=== PATIENT | female | born 1980 | race Caucasian/White ===

== ENCOUNTER 2017-01-28 08:19 | Emergency (ER) | payer BC, OTHER ==
[~2017-01-28] VITALS: Ht 157.5 cm; Wt 63.2 kg
[~2017-01-28 08:19] MED LIST: AMOX500C PO
[2017-01-28 08:24] VITALS: BP 162/96
--- NOTE | 2017-01-28 08:38 | PHYS DOC ---
General Chief Complaint: FLANK PAIN Stated Complaint: BACK PAIN,NAUSEA Time Seen by MD: 08:20 Source: patient Exam Limitations: no limitations Problems: History of Present Illness Initial Comments Patient is a 36-year-old female who comes to the ED complaining of left flank pain and nausea. Patient was seen January 19 at [facility] for similar symptoms, on that day she had a 3 mm nonobstructing left ureterolithiasis and UTIs she was discharged home with Cipro and Cleveland 5 mg. She says she was doing well until 2 days ago she developed what she calls bladder spasms and she began taking over- the-counter Azo yesterday which resolved those symptoms. This morning she says she was awakened approximately 5 AM with severe left costovertebral angle pain and nausea. She's had no vomiting she took three 5mg Cleveland and 50 mg of Phenergan at home without any relief. She ultimately had to come into the emergency department with the severity of her symptoms. On ED arrival patient vital signs are stable: 97.7, 53, 16, 162/96, 100% RA. She is in severe distress with pain and nausea she denies any fever chills sweats or myalgias prior to coming in. She has history of kidney stones and lithotripsy in the past. Timing/Duration: other Severity: severe Modifying Factors: improves with other Associated Symptoms: nausea/vomiting (well), other Allergies: Coded Allergies: No Known Drug Allergies (Unverified , 09/06/15) Past Medical History Medical History: other (hypothyroid, kidney stones, migraine, ADD, insomnia) Surgical History: other (appendectomy, hysterectomy, lithotripsy, breast augmentation) Social History Alcohol: occasionally Drugs: none Review of Systems Constitutional: denies chills, denies diaphoresis, denies fever Respiratory: denies cough, denies shortness of breath Cardiovascular: denies chest pain, denies palpitations Gastrointestinal: see HPI Genitourinary: see HPI Musculoskeletal: see HPI, denies joint swelling, denies neck pain Psychiatric/Neurological: denies headache, denies numbness, denies paresthesia Hematologic/Lymphatic: denies blood clots, denies easy bleeding, denies easy bruising Physical Exam General Appearance: WD/WN, moderate distress Eyes: bilateral eye normal inspection, bilateral eye PERRL, bilateral eye EOMI Ear, Nose, Throat: hearing grossly normal, normal ENT inspection, normal pharynx Neck: non-tender, supple Respiratory: normal breath sounds, no respiratory distress Cardiovascular: normal peripheral pulses, bradycardia Gastrointestinal: non tender, soft (bowel sounds diminished), no organomegaly Back: no vertebral tenderness, CVA tenderness (L) Extremities: normal range of motion, normal inspection 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 PHYSICIAN: KEY GREGORY DO REASON: L flank pain h/o stone PROCEDURE: CT ABDOMEN PELVIS WO CONTRAST Indication: Left flank pain. The patient does have a history of kidney stones. Axial imaging through the abdomen and pelvis was performed without contrast. Comparison is made with prior CT from 05/02/2015. The liver and gallbladder are unremarkable. The pancreas and spleen are unremarkable. No adrenal mass is detected. The right kidney is unremarkable. No renal calculi are detected. There is mild left hydroureteronephrosis. The dilated left ureter is traced into the pelvis where there is a 2 to 3 mm calculus just above the UVJ. Bladder is unremarkable. There is mild sigmoid diverticulosis but no evidence of acute diverticulitis. Small and large bowel loops are normal caliber. There is no ascites. Impression: 2 to 3 mm calculus distal left ureter producing mild hydroureteronephrosis. PQRS Compliance Statement: One or more of the following individualized dose reduction techniques were utilized for this examination: 1. Automated exposure control 2. Adjustment of the mA and/or kV according to patient size 3. Use of iterative reconstruction technique DICTATED AND SIGNED BY: KATIUSKA COFFEY MD DATE: 01/28/17917 CC: RADHA MAE MD; KEY GREGORY DO ~ Pertinent labs: White blood cells 11.4, BUN 24, creatinine 1.4 Urinalysis: SE mod, WBC 1-4, RBC >40, +Nitrites, 100 glu At this time patient's symptoms are controlled with fentanyl, Toradol, Zofran, and Reglan. She is agreeable to transfer she has also received Rocephin 1 g IV. 0955: A call was placed to Dr. Tanner urologist, I did not actually speak with him. His office staff advised emergency department staff his request transfer the patient to [facility] for further evaluation and treatment. 1001: Pt discussed with business operations manager hospitalist at [facility] Dr Jose who accepts med/surg admission/transfer. Urine culture result obtained from a January 19 [facility] ED visit , mixed urogenital rajan. IMPRESSIONS: Left sided 3mm distal ureterolithiasis with hydroureteronephrosis UTI Renal Insufficiency Departure Time of Disposition: 10:12 Disposition: 05 XFER OTHER Diagnosis: left ureterolithiasis with obstruction, UTI, renal Condition: STABLE Additional Instructions: EMS transfer to [facility] Dr Jose is accepting Dr Tanner to be consulted. KEY GREGORY DO Jan 28, 2017 08:38
[2017-01-28] MEDS ORDERED: IV NORMAL SALINE 1,000ML 1,000 ML ONE (08:43)
[2017-01-28 08:44] LABS: BASO # 0.1 x10^3/uL (0.0-0.2); BASO % 1 % (0-3); EOS # 0.1 x10^3/uL (0.0-0.7); EOS % 1 % (0-3); HEMATOCRIT 43.8 % (36.0-47.0); HEMOGLOBIN 14.7 g/dL (12.0-15.5); LYMPH # 2.5 x10^3/uL (1.0-4.8); LYMPH % 22 % (24-48); MEAN CORPUSCULAR HEMOGLOBIN 31 pg (25-35); MEAN CORPUSCULAR HGB CONC 34 g/dL (31-37); MEAN CORPUSCULAR VOLUME 93 fL (79-100); MONO # 0.6 x10^3/uL (0.0-1.1); MONO % 5 % (0-9); NEUT # 8.2 x10^3uL (1.8-7.7); NEUT % 72 % (31-73); PLATELET COUNT 322 x10^3/uL (140-400); RED BLOOD COUNT 4.74 x10^6/uL (3.50-5.40); RED CELL DISTRIBUTION WIDTH 13.8 % (11.5-14.5); WHITE BLOOD COUNT 11.4 x10^3/uL (4.0-11.0)
[2017-01-28] MEDS ORDERED: fentaNYL PF 100 MCG/2 ML VIAL IV PRN ×2 (08:45→10:30)
[2017-01-28 08:50] LABS: CALCIUM 8.3 mg/dL (8.5-10.1); CREATININE 1.4 mg/dL (0.6-1.0); GFR 42.1; POTASSIUM 3.9 mmol/L (3.5-5.1)
[2017-01-28 08:57] LABS: CLARITY,URINE HAZY; COLOR,URINE AMBER; GLUCOSE,URINE 100 mg/dL (NEG)
[2017-01-28 08:58] LABS: BILIRUBIN,URINE SMALL (NEG); NITRITE,URINE POS (NEG); UROBILINOGEN,URINE 1 mg/dL (0.2 mg/dL)
[2017-01-28 08:59] LABS: BACTERIA,URINE FEW /HPF (0-FEW); RBC,URINE >40 /HPF (0-2); SQUAMOUS EPITHELIAL CELL,UR MOD /LPF
[2017-01-28] MEDS ORDERED: KETOROLAC 30 MG/ML VIAL. IV ONE (09:10)
[2017-01-28] MEDS ORDERED: ONDANSETRON PF 4 MG/2 ML VIAL. IV ONE (09:10)
--- NOTE | 2017-01-28 09:23 | RAD ---
Indication: Left flank pain. The patient does have a history of kidney stones. Axial imaging through the abdomen and pelvis was performed without contrast. Comparison is made with prior CT from 05/02/2015. The liver and gallbladder are unremarkable. The pancreas and spleen are unremarkable. No adrenal mass is detected. The right kidney is unremarkable. No renal calculi are detected. There is mild left hydroureteronephrosis. The dilated left ureter is traced into the pelvis where there is a 2 to 3 mm calculus just above the UVJ. Bladder is unremarkable. There is mild sigmoid diverticulosis but no evidence of acute diverticulitis. Small and large bowel loops are normal caliber. There is no ascites. Impression: 2 to 3 mm calculus distal left ureter producing mild hydroureteronephrosis. PQRS Compliance Statement: One or more of the following individualized dose reduction techniques were utilized for this examination: 1. Automated exposure control 2. Adjustment of the mA and/or kV according to patient size 3. Use of iterative reconstruction technique
[2017-01-28] MEDS ORDERED: METOCLOPRAMIDE HCL 10 MG/2 ML VIAL. IV ONE (09:40)
[2017-01-28] MEDS ORDERED: IV NORMAL SALINE 50ML 50 ML ONE (11:00)
[2017-01-28] MEDS ORDERED: cefTRIAXone SODIUM 1 GM VIAL IV ONE (11:00)
== END 2017-01-28 11:10 | disposition short-term general hospital (02) ==
LOC: ER 08:19
DX: N13.2 Hydronephrosis with renal and ureteral calculous obstruction (principal); N39.0 Urinary tract infection, site not specified; Z87.442 Personal history of urinary calculi; E03.9 Hypothyroidism, unspecified; F98.8 Other specified behavioral and emotional disorders with onset usually occurring in childhood and adolescence; G47.00 Insomnia, unspecified; G43.909 Migraine, unspecified, not intractable, without status migrainosus; N28.9 Disorder of kidney and ureter, unspecified
CPT/HCPCS: 36415; 74176; 80048; 81001; 85027; 87086; 96365; 96375; 96376; 99285; J0696; J1885; J2405; J2765; J3010; 80305; 80320; G0481

== ENCOUNTER 2017-07-30 18:40 | Emergency (ER) | payer BC ==
[~2017-07-30] VITALS: Ht 157.5 cm; Wt 63.2 kg
--- NOTE | 2017-07-30 19:08 | PHYS DOC ---
Past History Past Medical History: Hypothyroid, Migraines, Other Past Surgical History: Appendectomy, Hysterectomy, Other Alcohol Use: Occasionally Drug Use: None Adult General Chief Complaint Chief Complaint: Neck Pain HPI HPI Patient is a 37 year old F who presents with neck pain and difficult swallowing. Patient states that yesterday symptoms started which started in the middle of her chest and went up to her neck with associated difficult to swallowing. Patient states her gave her a neck massage and which symptoms got better and she is able to sleep with no occasions. Patient woke up this morning without any symptoms as day progressed started having more difficulty swallowing and fill it as a lump the back of her throat. Patient has no sniff get cardiac history other than remote history of bigeminy and trigeminy in which he takes no medication for period. Patient states she has not had any palpitations quite some time. Patient denies any fevers. Patient denies any shortness of breath. Patient has no other complaints. Review of Systems Review of Systems GEN: Denies fevers, chills, sweats HEENT: Difficult swallowing CV: chest pain RESP: Denies shortness of air, cough GI: Denies n/v/d NEURO: Denies confusion, dizziness MSK: Denies weakness, joint pain/swelling All other systems were reviewed and found to be within normal limits, except as documented in this note. Allergies Allergies Allergies Coded Allergies Type Severity Reaction Last Updated Verified No Known Drug Allergies 09/06/15 No Physical Exam Physical Exam GEN.: No apparent distress. Alert and oriented. HEENT: Head is normocephalic, atraumatic NECK: Supple. LUNGS: CTAB. HEART: RRR, S1, S2 present. Peripheral pulses intact ABDOMEN: Soft, nontender. Positive bowel sounds. EXTREMITIES: Without any cyanosis. NEUROLOGIC: Normal speech, normal tone PSYCHIATRIC: Normal affect, normal mood. SKIN: No ulcerations Current Patient Data Vital Signs Vital Signs Date Time Temp Pulse Resp B/P (MAP) Pulse Ox O2 Delivery O2 Flow Rate FiO2 07/30/17 18:59 98.0 92 18 99 Room Air EKG EKG 1911: EKG shows normal sinus rhythm rate of 74 no STEMI[] Radiology/Procedures Radiology/Procedures Chest x-ray NAD CT scan soft tissue neck with contrast: IMPRESSION: No inflammation, mass or adenopathy evident. The thyroid gland is subjectively atrophic and demonstrates diminished density/contrast enhancement, this is of uncertain significance, consider correlation with thyroid function studies to exclude the possibility of thyroiditis or hypothyroidism.[] Course & Med Decision Making Course & Med Decision Making Pertinent Labs and Imaging studies reviewed. (See chart for details) ED course: Patient was seen and examined emergency room a cardiac workup was ordered along with a CT scan of the soft tissue neck with contrast Updated patient on lab results and CT findings, specifically the dense spots in the thyroid and recommended short-term follow-up with her PCP for further thyroid studies along with ultrasound the thyroid. On reexamination patient felt that her neck was still tight and did not want to come the hospital for cardiac workup and did not think this was cardiac related. Patient requested a muscle relaxer for the neck since her massaging her neck help with symptoms. MDM: After reviewing the chart, CC/HPI/PMH, physical exam, [lab results], [ radiological results], I do not believe the patient has emergent medical condition warranting further workup and/or admission at this time. I do not believe the patient having acute NV (HEART score =1), PE (Perc neg), and low suspicion for acute thoracic aortic dissection. Patient did not feel this is cardiac in nature and felt is more muscle related and would like a muscle relaxer to go home with. Patient was comfortable being discharged home. I believe patient stable for discharge. Additional verbal discharge instructions were provided to the patient and that if symptoms get worse or any new symptoms arise that are worrisome to the patient she is to return to the emergency room immediately Dragon Disclaimer Dragon Disclaimer This electronic medical record was generated, in whole or in part, using a voice recognition dictation system. Departure Departure: Impression: Primary Impression: Neck pain Additional Impression: Chest pain Disposition: 01 HOME, SELF-CARE Condition: IMPROVED Referrals: RED RODRÍGUEZ MD (PCP) Patient Instructions: Chest Pain (Nonspecific), Soft Tissue Injury of the Neck , [id number] Additional Instructions: Please follow-up with your family physician next one to 2 days for further evaluation and management of your symptoms and for further workup of your thyroid Scripts Diazepam (VALIUM) 5 Mg Tablet 5 MG PO TID for 5 Days, #15 TAB Prov: ANTWAN MELLO DO 07/30/17 Problem Qualifiers ANTWAN MELLO DO Jul 30, 2017 19:08
[2017-07-30] MEDS ORDERED: LIDO:MAALOX 1:1 20 ML SINGLE DOSE PO ONE (19:15)
[2017-07-30 19:20] LABS: BASO # 0.1 x10^3/uL (0.0-0.2); BASO % 1 % (0-3); EOS # 0.1 x10^3/uL (0.0-0.7); EOS % 2 % (0-3); LYMPH % 38 % (24-48); MEAN CORPUSCULAR HEMOGLOBIN 32 pg (25-35); MEAN CORPUSCULAR HGB CONC 35 g/dL (31-37); MEAN CORPUSCULAR VOLUME 90 fL (79-100); MONO # 0.5 x10^3/uL (0.0-1.1); MONO % 6 % (0-9); NEUT # 4.2 x10^3uL (1.8-7.7); NEUT % 54 % (31-73); PLATELET COUNT 233 x10^3/uL (140-400); RED BLOOD COUNT 4.76 x10^6/uL (3.50-5.40); RED CELL DISTRIBUTION WIDTH 13.2 % (11.5-14.5); WHITE BLOOD COUNT 7.9 x10^3/uL (4.0-11.0)
--- NOTE | 2017-07-30 19:23 | EKG ---
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
[2017-07-30 19:42] LABS: ALBUMIN 3.8 g/dL (3.4-5.0); ALBUMIN/GLOBULIN RATIO 1.2 (1.0-1.7); CALCIUM 9.2 mg/dL (8.5-10.1); CREATININE 0.9 mg/dL (0.6-1.0); GFR 69.7; POTASSIUM 3.7 mmol/L (3.5-5.1); TOTAL BILIRUBIN 0.2 mg/dL (0.2-1.0); TOTAL PROTEIN 7.1 g/dL (6.4-8.2)
[2017-07-30] MEDS ORDERED: IOHEXOL 300 MG/ML 75 ML VIAL. IV ONE ×2 (19:45)
[2017-07-30 20:47] VITALS: BP 150/90
--- NOTE | 2017-07-30 20:55 | RAD ---
CT soft tissue neck with contrast HISTORY: Neck pain and upper chest pain. Dysphagia. TECHNIQUE: Helical CT imaging of the neck acquired with 75 mL Omnipaque 300 intravenous contrast. Findings: The thyroid gland is subjectively atrophic. There is also globally decreased density/enhancement of the thyroid gland. This is uncertain significance. The aerodigestive tract demonstrates no mucosal thickening, luminal narrowing or mass. Salivary glands are unremarkable. Vessels unremarkable. No adenopathy. Lung apices and bones are unremarkable. IMPRESSION: No inflammation, mass or adenopathy evident. The thyroid gland is subjectively atrophic and demonstrates diminished density/contrast enhancement, this is of uncertain significance, consider correlation with thyroid function studies to exclude the possibility of thyroiditis or hypothyroidism. Exposure: One or more of the following individualized dose reduction techniques were utilized for this examination: 1. Automated exposure control 2. Adjustment of the mA and/or kV according to patient size 3. Use of iterative reconstruction technique Electronically signed by: Abdulkadir Woodard MD (07/30/2017 8:52 PM) [facility]
[2017-07-30] MEDS ORDERED: DIAZ5TAB PO (21:14)
--- NOTE | 2017-07-31 09:21 | RAD ---
Chest radiograph 07/30/2017 9:02 PM Indication: Chest pain and tightness Comparison: CT abdomen/pelvis 01/28/2017 Technique: Single portable upright frontal view of the chest is provided. Findings: Cardiomediastinal silhouette is within normal limits. No pleural effusions, pulmonary vascular congestion or pneumothorax. The lungs are clear. Osseous structures are normal. Impression: No acute cardiopulmonary process.
== END 2017-07-30 21:26 | disposition home or self-care (01) ==
LOC: ER 18:40
DX: M54.2 Cervicalgia (principal); R07.9 Chest pain, unspecified; R13.10 Dysphagia, unspecified; E03.9 Hypothyroidism, unspecified; G43.909 Migraine, unspecified, not intractable, without status migrainosus
CPT/HCPCS: 36415; 70491; 71010; 80053; 84484; 85025; 93005; 99285; Q9967